=== PATIENT | female | born 1985 | race Caucasian/White ===

== ENCOUNTER 2017-12-11 21:19 | Emergency (ER) | payer BC, OTHER ==
--- NOTE | 2017-12-12 00:21 | C.PDOC ---
History Of Present Illness Patient is a 32 y/o female who presents to the ED with a complaint of right elbow pain s/p falling from a hover board. Patient notes pain begins at right elbow and ends at right shoulder. Denies any head injury. No other physical complaints at this time. Time Seen by Provider: 12/11/17 21:53 Chief Complaint (Nursing): Upper Extremity Problem/Injury History Per: Patient History/Exam Limitations: no limitations Onset/Duration Of Symptoms: Days Current Symptoms Are (Timing): Still Present Exacerbating Factor(s): Movement Recent travel outside of the [place]: No Past Medical History Reviewed: Historical Data, Nursing Documentation, Vital Signs Vital Signs: Last Vital Signs Temp 98 F 12/12/17 01:16 Pulse 80 12/12/17 01:16 Resp 20 12/12/17 01:16 BP 112/79 12/12/17 01:16 Pulse Ox 99 12/12/17 01:20 - Medical History PMH: No Chronic Diseases Surgical History: Cholecystectomy Family History: States: No Known Family Hx - Social History Hx Tobacco Use: No Hx Alcohol Use: Yes Hx Substance Use: No - Immunization History Hx Tetanus Toxoid Vaccination: No Hx Influenza Vaccination: No Hx Pneumococcal Vaccination: No Review Of Systems Musculoskeletal: Positive for: Arm Pain (right elbow) Physical Exam - Physical Exam Appears: Well, Non-toxic, No Acute Distress Oral Mucosa: Moist Extremity: No Normal ROM (refusal to extend right elbow, in flexed position), Tenderness (to right elbow and mildly to right shoulder) Pulses: Right Radial: Normal Neurological/Psych: Oriented x3, Normal Speech, Normal Cognition ED Course And Treatment O2 Sat by Pulse Oximetry: 99 - CT Scan/US CT right arm Other Rad Studies (CT/US): Interpreted By Me, Read By Radiologist CT/US Interpretation: EXAM: CT Right Upper Extremity Without Intravenous Contrast. EXAM DATE/TIME: 12/11/2017 11:15 PM. CLINICAL HISTORY: 32 years old , female; Pain and injury or trauma; Fall; Initial encounter; Swelling (edema); Shoulder. and elbow; Right; Upper arm and elbow; Additional info: Injury of elbow and shoulder. TECHNIQUE: Axial computed tomography images of the right upper extremity without intravenous contrast. All CT. scans at this facility use one or more dose reduction techniques, viz.: automated exposure control;. ma/kV adjustment per patient size (including targeted exams where dose is matched to indication; i.e. head); or iterative reconstruction technique. Coronal and sagittal reformatted images were created and reviewed. COMPARISON: There are no prior studies for comparison. FINDINGS: Bones/joints: Visualized portions of the right clavicle is intact. Right scapula is intact. Acromioclavicular joint is maintained. Visualized right ribs are unremarkable. Humeral head projects. in the glenoid fossa. There are no humeral fractures. Alignment at the elbow is anatomic. There is no. effusion in the elbow joint. There is a radial head fracture. Proximal ulna is intact. There is soft tissue. swelling at the elbow. Soft tissues: See above. Lungs: Visualized portions of the right lung is clear. No acute abnormality is seen in the visualized. portions of the upper abdomen. IMPRESSION: Radial head fracture with elbow joint effusion. Thank you for allowing us to participate in the care of your patient. Progress Note: CT right upper extremity and POC urine ordered. Long arm splint was applied by me, arm sling given. Percocet was given for pain control. Patient was d/c home with Ortho follow up. Disposition - Disposition Referrals: J Luis Darby III, MD [Staff Provider] - Disposition: HOME/ ROUTINE Disposition Time: 01:16 Condition: STABLE Additional Instructions: Follow up with Orthopedist within 2-3 days. Return to ED if feel worse. Prescriptions: oxyCODONE/Acetaminophen [Percocet 5/325 mg Tab] 1 tab PO QID PRN #20 tab PRN Reason: Pain Instructions: Elbow Fracture (DC) Forms: [employer] (Sudanese) - Clinical Impression Clinical Impression: Elbow fracture, right - Scribe Statement The provider has reviewed the documentation as recorded by the Scribe Anna Hartley All medical record entries made by the Scribe were at my direction and personally dictated by me. I have reviewed the chart and agree that the record accurately reflects my personal performance of the history, physical exam, medical decision making, and the department course for this patient. I have also personally directed, reviewed, and agree with the discharge instructions and disposition.
[2017-12-12] MEDS ORDERED: Oxycodone/Acetaminophen 5/325 mg Tab PO STA (00:33)
--- NOTE | 2017-12-12 00:37 | CT ---
EXAM: CT Right Upper Extremity Without Intravenous Contrast EXAM DATE/TIME: 12/11/2017 11:15 PM CLINICAL HISTORY: 32 years old, female; Pain and injury or trauma; Fall; Initial encounter; Swelling (edema); Shoulder and elbow; Right; Upper arm and elbow; Additional info: Injury of elbow and shoulder TECHNIQUE: Axial computed tomography images of the right upper extremity without intravenous contrast. All CT scans at this facility use one or more dose reduction techniques, viz.: automated exposure control; ma/kV adjustment per patient size (including targeted exams where dose is matched to indication; i.e. head); or iterative reconstruction technique. Coronal and sagittal reformatted images were created and reviewed. COMPARISON: There are no prior studies for comparison. FINDINGS: Bones/joints: Visualized portions of the right clavicle is intact. Right scapula is intact. Acromioclavicular joint is maintained. Visualized right ribs are unremarkable. Humeral head projects in the glenoid fossa. There are no humeral fractures. Alignment at the elbow is anatomic. There is no effusion in the elbow joint. There is a radial head fracture. Proximal ulna is intact. There is soft tissue swelling at the elbow. Soft tissues: See above. Lungs: Visualized portions of the right lung is clear. No acute abnormality is seen in the visualized portions of the upper abdomen. IMPRESSION: Radial head fracture with elbow joint effusion
[2017-12-12] MEDS ORDERED: Oxycodone/Acetaminophen 5/325 mg Tab ONE (00:44)
[2017-12-12 01:17] VITALS: BP 112/79; PULSE 80; RESP 20; TEMP 98
[2017-12-12 01:19] VITALS: O2SAT 99
== END 2017-12-12 01:57 | disposition home or self-care (01) ==
LOC: C.ER 21:19
DX: S52.121A Displaced fracture of head of right radius, initial encounter for closed fracture (principal); W18.30XA Fall on same level, unspecified, initial encounter